=== PATIENT | female | born 2000 | race Caucasian/White ===

== ENCOUNTER 2020-08-03 07:48 | Outpatient (CLI) | payer OTHER | END 2020-08-03 07:59 | disposition home or self-care (01) | LOC: SONOGRAMA 07:48 → MAMO-SONO 08:00 | PROVIDERS: ATTEND Specialist | DX: D11.0 Benign neoplasm of parotid gland (principal) ==

== ENCOUNTER → 2022-06-03 | Outpatient (CLI) | payer OTHER | END | disposition home or self-care (01) | LOC: SONOGRAMA 09:33 | DX: R19.00 Intra-abdominal and pelvic swelling, mass and lump, unspecified site (principal) ==